=== PATIENT | female | born 1995 | race African-American/Black ===

== ENCOUNTER 2017-06-30 13:21 | Observation (INO) | payer MEDICAID ==
[~2017-06-30] VITALS: Ht 175.3 cm; Wt 86.2 kg
== END 2017-06-30 16:00 | disposition home or self-care (01) ==
LOC: L&D 13:21
PROVIDERS: ADMIT Specialist; ATTEND Specialist
DX: O46.93 Antepartum hemorrhage, unspecified, third trimester (principal); Z3A.36 36 weeks gestation of pregnancy
CPT/HCPCS: 76805; 76818; 99281; G0378